=== PATIENT | male | born 1975 | race Caucasian/White ===

== ENCOUNTER 2023-02-15 10:35 | Emergency (ER) | payer OTHER ==
[2023-02-15] MEDS ORDERED: Silver Sulfadiazine 1% Crm 400 GM Jar TOP ONE ×2 (11:12→12:00)
[2023-02-15] MEDS ORDERED: Diphtheria,Pertussis(Acell),Tetanus Vaccine 0.5 ML Syringe IM ONE (11:38)
[2023-02-15] MEDS ORDERED: Bacitracin Oint 1 GM U/D Packet TOP ONE (11:40)
[2023-02-15] MEDS ORDERED: Bacitracin Oint 28.35 GM Tube TOP ONE (12:00)
== END 2023-02-15 12:57 | disposition home or self-care (01) ==
LOC: JP.ED 10:35
DX: T24.201A Burn of second degree of unspecified site of right lower limb, except ankle and foot, initial encounter (principal); T31.0 Burns involving less than 10% of body surface; Z91.048 Other nonmedicinal substance allergy status; Z23 Encounter for immunization; X08.8XXA Exposure to other specified smoke, fire and flames, initial encounter
CPT/HCPCS: 90471; 90715; 99283; A9270